=== PATIENT | male | born 2000 | race Two or more races ===

== ENCOUNTER 2023-02-22 11:38 | Inpatient (IN) | payer OTHER ==
[~2023-02-22] VITALS: Ht 175.3 cm; Wt 94.9 kg
[2023-02-22 11:57] LABS: Basophils # (auto) 0 10 ^3/uL (0-0.2); Basophils % (auto) 0.4 % (0.0-2.0); Eosinophils # (auto) 0 10 ^3/uL (0-0.8); Eosinophils % (auto) 0.2 % (0.0-7.0); Hematocrit 49.8 % (41.0-53.0); Hemoglobin 17.2 g/dL (13.5-17.5); Lymphocytes # (auto) 2.3 10 ^3/uL (0.4-5.4); Mean Corpuscular Hemoglobin 30.9 pg (28.0-32.0); Mean Corpuscular Hgb Conc. 34.5 g/dL (32.0-36.0); Mean Corpuscular Volume 89.6 fL (80.0-100.0); Monocytes # (auto) 0.8 10 ^3/uL (0-1.3); Monocytes % (auto) 6.7 % (0.0-12.0); Neutrophils # (auto) 9.1 10 ^3/uL (1.6-8.6); Neutrophils % (auto) 73.7 % (37.0-80.0); Red Blood Cells 5.55 10^6/uL (4.5-5.90); Red Cell Distribution Width 13.6 % (11.8-14.3); White Blood Cell 12.3 10^3/uL (4.4-10.8)
[2023-02-22 12:16] LABS: Alanine Aminotransferase 143 U/L (7-40); Albumin 5.3 g/dL (3.2-4.8); Alkaline Phosphatase 82 U/L (46-116); Anion Gap 12 (5-15); Aspartate Aminotransferase 52 U/L (13-40); BUN/Creatinine Ratio 10.3 (10.0-20.0); Blood Urea Nitrogen 12 mg/dL (9-23); Calcium 10.3 mg/dL (8.5-10.1); Carbon Dioxide 21 mmol/L (20-30); Chloride 104 mmol/L (98-107); Glucose 141 mg/dL (74-106); Potassium 4.2 mmol/L (3.5-5.1); Sodium 137 mmol/L (136-145)
[2023-02-22 12:17] LABS: Bilirubin, Total 0.6 mg/dL (0.2-1.0); Total Protein 8.2 g/dL (5.7-8.2)
[2023-02-22 12:27] LABS: Urine Bacteria FEW /hpf (None Seen); Urine Blood Negative /uL (Negative); Urine Clarity Clear (Clear); Urine Color Yellow (Yellow); Urine Mucus FEW (None Seen); Urine Protein, UAD 1+ (Negative); Urine Specific Gravity 1.024 (1.001-1.035); Urine Sperm PRESENT /hpf (None Seen); Urine Urobilinogen Normal (Negative); Urine WBC 1 /hpf (0 - 3)
[2023-02-22] MEDS ORDERED: SODIUM CHLORIDE 0.9% 1,000 ML IV ONE (12:45)
[2023-02-22] MEDS ORDERED: ASPirin 81 mg TAB PO ONE (12:45)
[2023-02-22 13:00] LABS: INR 1.06 (0.9-1.15); Partial Thromboplastin Time 26.6 SEC (24.5-34.5); Prothrombin Time 11.1 sec (9.3-11.8)
[2023-02-22 13:36] VITALS: PULSE 104; RESP 14; O2SAT 96
[2023-02-22] MEDS ORDERED: ONDANSETRON HCL 4 MG/2 ML VIAL IV PRN (18:30)
[2023-02-22] MEDS ORDERED: DOCUSATE SOD 100 MG CAP PO PRN (18:30)
[2023-02-22 19:54] LABS: Amphetamine Screen, Urine Neg (NEGATIVE); Barbiturate Scree,Urine Neg (NEGATIVE); Benzodiazephine Screen, Urine Neg (NEGATIVE); Cannabinoid Screen, Urine Neg (NEGATIVE); Cocaine Screen, Urine Neg (NEGATIVE); Opiate Scree,Urine Neg (NEGATIVE); Phencyclidine Screen, Urine Neg (NEGATIVE)
[2023-02-22] MEDS: SODIUM CHLORIDE 0.9% 1,000 ML IV SCH (20:44)
[2023-02-22] MEDS ORDERED: ISOT30CA PO (20:46)
[2023-02-22] MEDS ORDERED: ESCI20TA PO (20:46)
[2023-02-22] MEDS ORDERED: BUPR-346 PO (20:46)
[2023-02-22] MEDS ORDERED: HYDR-3682 PO (20:46)
[2023-02-22 21:55] VITALS: BP 157/88; PULSE 77; PULSE 81; RESP 18; TEMP 98.3
[2023-02-22 22:00] VITALS: BP 171/109; PULSE 106; RESP 20; TEMP 98.4; O2SAT 98
[2023-02-22] MEDS: NEOMYCIN-BACITRACIN-POLYM 15GM TOP OINT TOP SCH (22:00)
[2023-02-22] MEDS: MORPHINE SULFATE INJ 2 MG/ml SYRG IV PRN (23:09)
[2023-02-23] MEDS: SODIUM CHLORIDE 0.9% 1,000 ML IV SCH ×4 (02:50→19:30)
[2023-02-23 05:00] VITALS: BP 134/92; PULSE 98; RESP 20; TEMP 97.6; O2SAT 97
[2023-02-23 06:17] LABS: Basophils # (auto) 0 10 ^3/uL (0-0.2); Basophils % (auto) 0.3 % (0.0-2.0); Eosinophils # (auto) 0.2 10 ^3/uL (0-0.8); Eosinophils % (auto) 2.1 % (0.0-7.0); Hematocrit 45.2 % (41.0-53.0); Hemoglobin 15.6 g/dL (13.5-17.5); Lymphocytes # (auto) 2.6 10 ^3/uL (0.4-5.4); Lymphocytes % (auto) 32.5 % (10.0-50.0); Mean Corpuscular Hemoglobin 31.2 pg (28.0-32.0); Mean Corpuscular Hgb Conc. 34.5 g/dL (32.0-36.0); Mean Corpuscular Volume 90.4 fL (80.0-100.0); Monocytes % (auto) 11.8 % (0.0-12.0); Neutrophils # (auto) 4.3 10 ^3/uL (1.6-8.6); Neutrophils % (auto) 53.3 % (37.0-80.0); Nucleated Red Blood Cells % 0.3 %; Red Cell Distribution Width 13.4 % (11.8-14.3); White Blood Cell 8.1 10^3/uL (4.4-10.8)
[2023-02-23 06:41] LABS: Alanine Aminotransferase 106 U/L (7-40); Albumin 4.3 g/dL (3.2-4.8); Alkaline Phosphatase 80 U/L (46-116); Anion Gap 8 (5-15); Aspartate Aminotransferase 37 U/L (13-40); BUN/Creatinine Ratio 7.4 (10.0-20.0); Bilirubin, Total 0.6 mg/dL (0.2-1.0); Blood Urea Nitrogen 9 mg/dL (9-23); Calcium 9.1 mg/dL (8.7-10.4); Carbon Dioxide 24 mmol/L (20-30); Chloride 107 mmol/L (98-107); Glucose 105 mg/dL (74-106); Potassium 4.1 mmol/L (3.5-5.1); Sodium 139 mmol/L (136-145); Total Protein 7.1 g/dL (5.7-8.2)
[2023-02-23 08:00] VITALS: BP 141/91; PULSE 63; PULSE 75; PULSE 89; RESP 14; TEMP 98.1; O2SAT 96
[2023-02-23 09:42] LABS: Triglycerides 670 mg/dL (< 150)
[2023-02-23 09:44] LABS: Cholesterol 209 mg/dL (< 200); HDL Cholesterol 26 mg/dL (40-59)
[2023-02-23] MEDS ORDERED: LISINOPRIL 10 MG TAB PO ONE (12:15)
[2023-02-23 13:00] VITALS: BP 144/81; PULSE 75; RESP 14; TEMP 98; O2SAT 99
[2023-02-23] MEDS: NEOMYCIN-BACITRACIN-POLYM 15GM TOP OINT TOP SCH ×2 (13:06→21:06)
[2023-02-23 17:00] VITALS: BP 154/71; PULSE 72; RESP 16; TEMP 97.9; O2SAT 98
[2023-02-23] MEDS ORDERED: hydrALAZINE HCL 20 MG/ML VL IV PRN (17:45)
[2023-02-23] MEDS: MORPHINE SULFATE INJ 2 MG/ml SYRG IV PRN (17:48)
[2023-02-23 20:00] VITALS: PULSE 93; RESP 18; O2SAT 96
[2023-02-23] MEDS ORDERED: ATORVASTATIN 20 MG TAB PO SCH (22:00)
[2023-02-23 22:58] VITALS: BP 142/95; PULSE 85; RESP 18; TEMP 97.9; O2SAT 96
[2023-02-24] MEDS: SODIUM CHLORIDE 0.9% 1,000 ML IV SCH (03:31)
[2023-02-24 04:44] VITALS: BP 118/84; PULSE 81; RESP 18; TEMP 97.8; O2SAT 96
[2023-02-24 08:00] VITALS: PULSE 72; PULSE 81; RESP 16; O2SAT 98
[2023-02-24 09:00] VITALS: BP 139/88; PULSE 81; RESP 16; TEMP 97.9; O2SAT 98
[2023-02-24] MEDS: NEOMYCIN-BACITRACIN-POLYM 15GM TOP OINT TOP SCH (09:30)
[2023-02-24] MEDS ORDERED: LISINOPRIL 10 MG TAB PO SCH (10:00)
[2023-02-24 10:15] LABS: Basophils # (auto) 0 10 ^3/uL (0-0.2); Basophils % (auto) 0.4 % (0.0-2.0); Eosinophils # (auto) 0.1 10 ^3/uL (0-0.8); Eosinophils % (auto) 1.4 % (0.0-7.0); Hematocrit 48.3 % (41.0-53.0); Hemoglobin 16.8 g/dL (13.5-17.5); Lymphocytes # (auto) 2.3 10 ^3/uL (0.4-5.4); Lymphocytes % (auto) 33.1 % (10.0-50.0); Mean Corpuscular Hemoglobin 31.1 pg (28.0-32.0); Mean Corpuscular Hgb Conc. 34.7 g/dL (32.0-36.0); Mean Corpuscular Volume 89.7 fL (80.0-100.0); Monocytes # (auto) 0.8 10 ^3/uL (0-1.3); Monocytes % (auto) 10.8 % (0.0-12.0); Neutrophils # (auto) 3.8 10 ^3/uL (1.6-8.6); Neutrophils % (auto) 54.3 % (37.0-80.0); Nucleated Red Blood Cells % 0.1 %; Red Blood Cells 5.38 10^6/uL (4.5-5.90); Red Cell Distribution Width 13.1 % (11.8-14.3); White Blood Cell 7.1 10^3/uL (4.4-10.8)
[2023-02-24 10:33] LABS: Alanine Aminotransferase 131 U/L (7-40); Alkaline Phosphatase 92 U/L (46-116); Anion Gap 6 (5-15); Aspartate Aminotransferase 48 U/L (13-40); BUN/Creatinine Ratio 7.1 (10.0-20.0); Bilirubin, Total 0.6 mg/dL (0.2-1.0); Blood Urea Nitrogen 8 mg/dL (9-23); Calcium 9.9 mg/dL (8.7-10.4); Carbon Dioxide 25 mmol/L (20-30); Chloride 105 mmol/L (98-107); Glucose 111 mg/dL (74-106); Magnesium 1.9 mg/dL (1.6-2.6); Potassium 3.9 mmol/L (3.5-5.1); Sodium 136 mmol/L (136-145); Total Protein 8.1 g/dL (5.7-8.2)
[2023-02-24 10:38] LABS: Folate (Folic Acid) > 24.00 ng/mL (>5.38)
[2023-02-24 13:00] VITALS: BP_SYST 136; BP_SYST 140; BP_SYST 145; BP_DIAS 77; BP_DIAS 82; BP_DIAS 90; PULSE 74; RESP 14; TEMP 97.8; O2SAT 97
[2023-02-24] MEDS ORDERED: LISI10TA34 PO (13:42)
[2023-02-24] MEDS ORDERED: ATOR20TA50 PO (13:42)
[2023-02-24 15:19] VITALS: BP 139/88
[2023-02-24 16:49] VITALS: BP 135/85; PULSE 70; RESP 18; TEMP 98.3; O2SAT 98
[2023-02-25 08:07] LABS: RPR Non Reactive (Non Reactive)
== END 2023-02-24 17:31 | disposition home or self-care (01) | DRG 641 ==
LOC: ER 11:38 → TELE 18:38 → TELE-CENTR 21:48
PROVIDERS: ADMIT Internal Medicine; ATTEND Student in an Organized Health Care Education/Training Program
DX: E86.0 Dehydration (principal); R65.10 Systemic inflammatory response syndrome (SIRS) of non-infectious origin without acute organ dysfunction; R55 Syncope and collapse; R07.89 Other chest pain; S00.81XA Abrasion of other part of head, initial encounter; S50.811A Abrasion of right forearm, initial encounter; R68.84 Jaw pain; D72.829 Elevated white blood cell count, unspecified; R73.9 Hyperglycemia, unspecified; R74.01 Elevation of levels of liver transaminase levels; F32.A Depression, unspecified; R07.9 Chest pain, unspecified; I10 Essential (primary) hypertension; E78.2 Mixed hyperlipidemia; R00.0 Tachycardia, unspecified; E78.5 Hyperlipidemia, unspecified; G89.29 Other chronic pain; F17.210 Nicotine dependence, cigarettes, uncomplicated; F43.12 Post-traumatic stress disorder, chronic; R74.8 Abnormal levels of other serum enzymes; R94.31 Abnormal electrocardiogram [ECG] [EKG]; W18.39XA Other fall on same level, initial encounter; Y93.89 Activity, other specified; Z82.49 Family history of ischemic heart disease and other diseases of the circulatory system; Y92.89 Other specified places as the place of occurrence of the external cause; Y99.8 Other external cause status
CPT/HCPCS: 36415; 70450; 70486; 71046; 80053; 80061; 80307; 81001; 82550; 82607; 82746; 82962; 83036; 83735; 84443; 84484; 85025; 85379; 85610; 85730; 86592; 93005; 93306; 93886; G0378

== ENCOUNTER 2023-06-29 19:37 | Emergency (ER) | payer OTHER ==
[~2023-06-29] VITALS: Ht 175.3 cm; Wt 90.0 kg
[~2023-06-29 19:37] MED LIST: ATOR20TA50 PO; BUPR-346 PO; CYCL-839 PO; ESCI20TA PO; HYDR-3682 PO; IBUP1TAB5 PO; ISOT30CA PO; LISI10TA34 PO
[2023-06-29 23:25] VITALS: BP 135/96; PULSE 85; RESP 18; TEMP 98.3; O2SAT 97
[2023-06-29] MEDS ORDERED: DexAMETHasone SOD PHOS 10MG/1ML VIAL INJ IM ONE (23:45)
[2023-06-29] MEDS ORDERED: KETOROLAC TROMETH 60MG/2ML VIAL IM ONE (23:45)
== END 2023-06-30 10:29 | disposition home or self-care (01) ==
LOC: ER 19:37
DX: M51.36 Other intervertebral disc degeneration, lumbar region (principal); R20.0 Anesthesia of skin; R32 Unspecified urinary incontinence; F17.210 Nicotine dependence, cigarettes, uncomplicated
CPT/HCPCS: 72131; 72148; 96372; 99285; J1100; J1885